=== PATIENT | male | born 1980 | race Caucasian/White ===

== ENCOUNTER 2017-03-18 08:32 | Inpatient (IN) | payer BC ==
[2017-02-21 13:36] VITALS: BMI 40.0
--- NOTE | 2017-02-21 13:56 | PAT Medication Instructions ---
Service Date Feb 21, 2017. Current Home Medication List Ibuprofen (Advil), 200-600 MG PO UD PRN for Pain Medication Instructions For Your Scheduled Surgery - Hold the following medications 7-10 days prior to surgery per surgeon's instructions: Ibuprofen (Advil), 200-600 MG PO UD PRN for Pain If you have any questions please call us at [phone] or [phone] or [phone]
--- NOTE | 2017-02-21 14:37 | DIAGNOSTIC IMAGING REPORT ---
CHEST PREADMISSION(PA/LAT) HISTORY: Preop. COMPARISON: None. FINDINGS: The lungs are clear. Cardiac silhouette is normal in size. No pleural effusions. No pneumothorax. IMPRESSION: No acute process. Electronically signed by: Cong Weathers M.D. 02/21/2017 2:36 PM Dictated Date/Time: 02/21/2017 2:35 PM
[2017-02-21 14:52] LABS: BASO % 0.3 %; BASO ABS # 0.03 K/uL (0-0.2); COMPLETE YES; EOS % 1.8 %; HEMATOCRIT 45.9 % (42-52); IG% 0.2 %; LYMPH % 25.6 %; LYMPH ABS # 2.32 K/uL (1.2-3.4); MEAN CELL VOLUME 90.2 fL (80-100); MEAN CORPUSCULAR HEMOGLOBIN 31.2 pg (25-34); MEAN CORPUSCULAR HGB CONC 34.6 g/dl (32-36); MONO % 8.5 %; NEUT % 63.6 %; PLATELET COUNT 230 K/uL (130-400); RED BLOOD COUNT 5.09 M/uL (4.7-6.1); WHITE BLOOD COUNT 9.05 K/uL (4.8-10.8)
[2017-02-21 15:06] LABS: BUN/CREATININE RATIO 12.2 (10-20); CALCIUM 8.9 mg/dl (8.5-10.1); CREATININE 1.1 mg/dl (0.60-1.40); POTASSIUM 4.1 mmol/L (3.5-5.1)
[2017-02-21 15:15] LABS: URINE APPEARANCE CLEAR (CLEAR); URINE BILIRUBIN NEG (NEG); URINE COLOR YELLOW; URINE NITRITE NEG (NEG); URINE PH 6.5 (4.5-7.5); URINE SPECIFIC GRAVITY 1.025 (1.000-1.030); UROBILINOGEN NEG (NEG); ZZUR CULT IF INDIC CLEAN CATCH NO
[2017-02-21 15:21] LABS: MANUAL MICROSCOPIC REQUIRED? NO; REVIEW REQ? NO
[~2017-03-18] VITALS: Ht 185.4 cm; Wt 136.9 kg
[2017-03-18] VITALS (9 sets, daily range): BP systolic 117–166; BP diastolic 70–92; PULSE 68–97; TEMP 36.5–37.1; O2SAT 94–99; Ht 185.4 cm; Wt 136.9 kg
[~2017-03-18 08:32] MED LIST: IBUP-1050 PO; LACTATED RINGER'S 1000ML 1,000 ML IV SCH
[2017-03-18] MEDS ORDERED: FENTANYL CITRATE INJ 50 MCG/1 ML 2 ML VIAL IV PRN (09:45)
[2017-03-18] MEDS ORDERED: EpHEDrine SULFATE INJ 50 MG/ML AMP IV PRN (09:45)
[2017-03-18] MEDS ORDERED: MoRPHine SULFATE 10 MG/ML CARP/VIAL IV PRN (09:45)
[2017-03-18] MEDS ORDERED: ATROPINE SULFATE 0.1 MG/ML 5ML SYR IV PRN (09:45)
[2017-03-18] MEDS ORDERED: ONDANSETRON INJ 2 MG/ML 2 ML VIAL IV PRN ×2 (09:45→13:45)
[2017-03-18] MEDS ORDERED: FENTANYL CITRATE INJ 50 MCG/1 ML 2 ML VIAL ONE ×4 (10:22→13:35)
[2017-03-18] MEDS ORDERED: MIDAZOLAM HCL 1 MG/ML 2ML VIAL ONE (10:22)
--- NOTE | 2017-03-18 10:31 | History & Physical Bridge Note ---
H&P Re-Evaluation Bridge Note: I have examined the patient, reviewed the History & Physical and in the interval since the performance of the History & Physical I have noted the following changes of clinical significance: No changes noted
--- NOTE | 2017-03-18 10:32 | History and Physical ---
History & Physical Date Mar 18, 2017. Chief Complaint Back and leg pain History of Present Illness The patient is a 37 year old male with complaints of back and leg pain Additional History Hepatic Disease: No Endocrine Disorder: No Kidney Disease: No Hypertension: No Heart Disease: No Bleeding Tendencies: No Infectious Diseases: No Allergies Coded Allergies: No Known Allergies (Unverified , 03/18/17) Home Medications Scheduled PRN Ibuprofen (Advil), 200-600 MG PO UD PRN for Pain Physical Examination Skin: warm/dry, no rash Eyes: normal inspection, EOMI, sclerae normal ENT: normal ENT inspection, pharynx normal Head: normocephalic, atraumatic Neck: supple, no adenopathy, trachea midline Respiratory/Chest: lungs clear, normal breath sounds, no respiratory distress Cardiovascular: regular rate, rhythm, no edema, no murmur Abdomen / GI: normal bowel sounds, non tender Back: normal inspection Extremities: normal inspection, normal range of motion Neurologic/Psych: no motor/sensory deficits, alert, normal reflexes, oriented x 3 Diagnosis Lumbar spinal stenosis Plan of Treatment Lumbar decompression and fusion L4 5 L5-S1
[2017-03-18] MEDS ORDERED: NURSING VERBAL MED ORDER STA (10:44)
[2017-03-18] MEDS ORDERED: CEFAZOLIN IV 3,000 MG/65 ML D5W IV ONE (10:46)
[2017-03-18] MEDS ORDERED: BUPIVACAINE/EPINEPHRINE 0.5% MPF 1:200,000 10 ML VIAL ONE ×2 (10:58)
[2017-03-18] MEDS ORDERED: BACITRACIN 50000 UNIT VIAL ONE (10:58)
[2017-03-18] MEDS ORDERED: HYDROmorphone INJ 2 MG/ML SYR/VIAL ONE ×3 (11:34→13:41)
[2017-03-18] MEDS ORDERED: LIDOCAINE HCL 2% 2 ML VIAL (20MG/ML) ONE (12:48)
[2017-03-18] MEDS ORDERED: ROCURONIUM BROMIDE 10 MG/ML 5 ML VIAL IV ONE (12:48)
[2017-03-18] MEDS ORDERED: DEXAMETHASONE SOD INJ 4 MG/ML VIAL ONE (12:48)
[2017-03-18] MEDS ORDERED: RANITIDINE HCL 25 MG/ML INJ ONE (12:48)
[2017-03-18] MEDS ORDERED: PROPOFOL IV EMULSION 10 MG/ML 20 ML VIAL IV ONE (12:48)
[2017-03-18] MEDS ORDERED: FLOSEAL HEMOSTATIC MATRIX 10ML TOP ONE (13:33)
[2017-03-18] MEDS ORDERED: SODIUM CHLORIDE 0.9% 1000ML 1,000 ML IV SCH (13:38)
[2017-03-18] MEDS ORDERED: METOCLOPRAMIDE HCL INJ 5 MG/ML 2 ML VIAL IV PRN (13:45)
[2017-03-18] MEDS ORDERED: LORAZEPAM 0.5 MG TAB PO PRN (13:45)
[2017-03-18] MEDS ORDERED: PROMETHAZINE HCL INJ 12.5 MG in SODIUM CHLORIDE 0.9% 50ML 50 ML IV PRN (13:45)
[2017-03-18] MEDS ORDERED: LORAZEPAM INJ 0.5 MG in SYRINGE 0 ML IV PRN (13:45)
[2017-03-18] MEDS ORDERED: MAGNESIUM HYDROXIDE SUSP 30 ML UDC PO PRN (13:45)
[2017-03-18] MEDS ORDERED: hydrOXYzine HCL 25 MG TAB PO PRN (13:45)
[2017-03-18] MEDS ORDERED: ACETAMINOPHEN 500 MG TAB PO PRN (13:45)
[2017-03-18] MEDS ORDERED: NALOXONE HCL 0.4 MG/1 ML VIAL/CARP IV PRN ×2 (13:45)
[2017-03-18] MEDS ORDERED: ALUMINUM/MAGNESIUM SUSP 30 ML UDC PO PRN (13:45)
[2017-03-18] MEDS ORDERED: ACETAMINOPHEN IV 100 ML IV PRN (13:45)
[2017-03-18] MEDS ORDERED: FAMOTIDINE 20 MG TAB PO PRN (13:45)
[2017-03-18] MEDS ORDERED: DO NOT ADMINISTER FLU VACCINE PRN ×3 (13:45)
[2017-03-18] MEDS ORDERED: BISACODYL 10 MG SUPP PR PRN (13:45)
[2017-03-18] MEDS ORDERED: SOD PHOSPHATE/SOD BIPHOSPHATE ENEMA 132 ML BTL PR PRN (13:45)
[2017-03-18] MEDS ORDERED: HYDROmorphone HCL 0.5MG/ML 50 ML CASSETTE IV PRN (13:45)
[2017-03-18] MEDS ORDERED: DO NOT ADMINISTER PNEUMOCOCCAL VACCINE PRN ×2 (13:45)
--- NOTE | 2017-03-18 13:46 | [facility] Operative Report ---
Operative Report Operative Date Mar 18, 2017. Pre-Operative Diagnosis Lumbar spinal stenosis Post-Operative Diagnosis Same as preoperative diagnosis Procedure(s) Performed #1 lumbar decompression medial facetectomies foraminotomies L4 5 L5-S1. #2 posterior spinal fusion L4 5 L5-S1. #3 placement posterior segmental instrumentation L4 5 L5-S1. #4 interbody fusion L4 5 L5-S1. #5 placement peek Cage 14 x 26 L4 5 and 14 x 26 at L5-S1. #6 placement locally harvested morcellized autograft in the posterior lateral gutters. #7 placement of ostial amp in the interbody space and posterior lateral gutters. Surgeon Dr. Mariusz Marie Inside Sales Supervisor Surgeon(s) Ankita Valenzuela PA-C Estimated Blood Loss 500mL Findings Severe spinal stenosis with herniated nucleus pulposus Specimens No pathology specimens per surgeon Description of Procedure Patient was met with preoperatively case discussed all questions are dressed. After informed consent patient was taken back to the operative suite and after undergoing intubation placed in a prone position on the Tully table top Howard frame. All bony promises well-padded eyes were inspected to ensure there is no external pressure placed upon them. This point the lumbar spine is prepped and draped in the normal sterile fashion. Sharp dissection with the assistance of Bovie cautery was performed onto an exposing the lamina and transverse processes of L4-L5 and sacral alar bilaterally. From a caudal to cephalad fashion complete laminectomy of L5 and L4 was performed addressing severe lateral recess and foraminal stenosis. Pedicle screws then placed in L4- L5 and S1 levels bilaterally with assistance of fluoroscopy in appropriate size jackson placed. Through a transforaminal approach on the right a complete discectomy of L5-S1 was performed and plate created to subcortical bleeding bone and a 14 x 26 Eva peek cage filled with bone graft tapped in position. Then proceeded L4 5 and again through a transforaminal approach complete discectomy was performed and plate created to subcortical bleeding bone and again a 14 x 26 mm peek cage filled with ostial amp tapped in position. The rods were then compressed locked and final position bilaterally. Transverse processes of L4-L5 and sacral alar burred to subcortical bleeding bone. The remaining ostial amp locally harvested morcellized autograft was placed in the posterior lateral gutters. A 15 round GIGI drain inserted. Incision was then closed with 1 Vicryl in the fascia 2-0 Vicryl subcutaneous C 4 Monocryl for final skin closure Steri-Strip sterile dressing placed patient we can take PACU stable condition. Please note Ankita Beal was present at the entire procedure involved in patient positioning complex portions of the surgery and final skin closure. I attest to the content of the Intraoperative Record and any orders documented therein. Any exceptions are noted below.
[2017-03-18] MEDS ORDERED: HYDROmorphone HCL 0.5MG/ML 50 ML CASSETTE ONE (13:55)
[2017-03-18] MEDS ORDERED: NEOSTIGMINE METHYLSULFATE 1 MG/ML 10ML VIAL ONE (13:58)
[2017-03-18] MEDS ORDERED: GLYCOPYRROLATE INJ 0.2 MG/ML VIAL ONE (13:58)
[2017-03-18] MEDS ORDERED: PHENYLEPHRINE 100MCG/ML 5ML SYR ONE (13:58)
[2017-03-18] MEDS ORDERED: ONDANSETRON INJ 2 MG/ML 2 ML VIAL ONE (13:58)
[2017-03-18] MEDS ORDERED: KETOROLAC TROMETHAMINE 30 MG/ML VIAL ONE (13:58)
--- NOTE | 2017-03-18 13:58 | DIAGNOSTIC IMAGING REPORT ---
LUMBAR SPINE 2 OR 3 VIEW HISTORY: 37 years-old Male L4-S1 DECOMPRESSION/FUSION/INTERBODY COMPARISON: None available TECHNIQUE: 2 spot fluoroscopic images of the lumbar spine were obtained utilizing 27.3 seconds of fluoroscopy time. FINDINGS/IMPRESSION: There has been posterior decompression with discectomy and interbody jackson and screw fixation at L4-S1. Alignment is satisfactory. Please see operative report for further details. The above report was generated using voice recognition software. It may contain grammatical, syntax or spelling errors. Electronically signed by: Domenico Nunez M.D. 03/18/2017 1:57 PM Dictated Date/Time: 03/18/2017 1:56 PM
--- NOTE | 2017-03-18 14:51 | Anesthesiology Progress Note ---
Anesthesia Post Op Note Date & Time Mar 18, 2017 at 14:51 Vital Signs Pain Intensity: 2 Vital Signs Past 12 Hours Date Time Temp Pulse Resp B/P (MAP) Pulse Ox O2 Delivery O2 Flow Rate FiO2 03/18/17 14:30 36.4 70 16 129/77 100 Nasal Cannula 4 03/18/17 14:20 69 14 139/76 99 Nasal Cannula 4 03/18/17 14:10 74 14 131/70 98 Mask 10 03/18/17 14:00 84 15 132/69 100 Mask 10 03/18/17 13:51 36.5 89 12 165/85 100 Mask 10 03/18/17 08:55 36.9 74 20 151/92 97 Room Air Notes Mental Status: alert / awake / arousable, participated in evaluation Pt Amnestic to Procedure: Yes Nausea / Vomiting: adequately controlled Pain: adequately controlled Airway Patency, RR, SpO2: stable & adequate BP & HR: stable & adequate Hydration State: stable & adequate Anesthetic Complications: no major complications apparent
[2017-03-18] MEDS ORDERED: NURSING VERBAL MED ORDER ONE (15:30)
[2017-03-18] MEDS ORDERED: COUGH DROP (SUGAR FREE) LOZ 24 LOZ/1 BOX PO PRN (15:45)
[2017-03-18] MEDS: LACTATED RINGER'S 1000ML 1,000 ML IV SCH ×2 (17:26→20:13)
[2017-03-18] MEDS: DEXAMETHASONE INJ 6 MG in SYRINGE 0 ML IV SCH (20:13)
[2017-03-18] MEDS: CEFAZOLIN IV 3,000 MG in DEXTROSE 5% 50ML 50 ML IV SCH (20:13)
[2017-03-18] MEDS: DOCUSATE SODIUM/SENNA 50/8.6MG TAB PO SCH (20:39)
[2017-03-19 03:18] VITALS: BP 142/69; PULSE 83; TEMP 37; O2SAT 96
[2017-03-19] MEDS: LACTATED RINGER'S 1000ML 1,000 ML IV SCH (03:22)
[2017-03-19] MEDS: CEFAZOLIN IV 3,000 MG in DEXTROSE 5% 50ML 50 ML IV SCH (03:23)
[2017-03-19] MEDS: DEXAMETHASONE INJ 6 MG in SYRINGE 0 ML IV SCH ×2 (03:26→11:34)
[2017-03-19] MEDS ORDERED: NURSING VERBAL MED ORDER ONE (05:30)
[2017-03-19] MEDS ORDERED: HYDROmorphone INJ 1 MG/ML SYR IV PRN (06:00)
[2017-03-19] MEDS ORDERED: HYDROmorphone INJ 0.5 MG/0.5 ML SYR IV PRN (06:00)
[2017-03-19] MEDS ORDERED: DC PCA SCH (06:00)
[2017-03-19 06:14] LABS: COMPLETE YES; IG% 0.4 %; LYMPH % 8.5 %; LYMPH ABS # 1.18 K/uL (1.2-3.4); MEAN CELL VOLUME 88.7 fL (80-100); MEAN CORPUSCULAR HEMOGLOBIN 31.2 pg (25-34); MEAN CORPUSCULAR HGB CONC 35.1 g/dl (32-36); MEAN PLATELET VOLUME 10.2 fL (7.4-10.4); MONO % 3.8 %; NEUT % 87.3 %; PLATELET COUNT 197 K/uL (130-400); RED BLOOD COUNT 4.17 M/uL (4.7-6.1); WHITE BLOOD COUNT 13.86 K/uL (4.8-10.8)
[2017-03-19 06:49] LABS: BUN/CREATININE RATIO 13.5 (10-20); CALCIUM 8.9 mg/dl (8.5-10.1); CREATININE 0.8 mg/dl (0.60-1.40); POTASSIUM 4.1 mmol/L (3.5-5.1)
[2017-03-19 06:58] VITALS: BP 128/78; PULSE 76; TEMP 36.8; O2SAT 94
[2017-03-19] MEDS: OXYCODONE HCL IR 5 MG TAB (IMMEDIATE RELEASE) PO PRN ×4 (07:10→21:29)
--- NOTE | 2017-03-19 08:57 | Progress Note ---
Progress Note Date of Service Mar 19, 2017. Progress Note Patient is postop day #1. Leg symptoms are markedly improved. Back pain is controlled. Vital signs are stable. GIGI drain decreasing appropriate. Assessment status post lumbar depression fusion replant this time we'll initiate physical therapy this a.m. advance his bowel regiment anticipate possible home tomorrow.
[2017-03-19] MEDS ORDERED: KETOROLAC TROMETHAMINE 30 MG/ML VIAL IV PRN (09:00)
[2017-03-19 11:09] VITALS: BP 119/57; PULSE 63; TEMP 36.8; O2SAT 96
[2017-03-19 15:10] VITALS: BP 120/64; PULSE 66; TEMP 37.2; O2SAT 94
[2017-03-19 15:30] VITALS: O2SAT 94
[2017-03-19] MEDS: DOCUSATE SODIUM/SENNA 50/8.6MG TAB PO SCH (21:29)
[2017-03-19 22:43] VITALS: BP 152/67; PULSE 70; TEMP 37.1; O2SAT 96
[2017-03-20] MEDS: OXYCODONE HCL IR 5 MG TAB (IMMEDIATE RELEASE) PO PRN ×3 (03:59→13:05)
[2017-03-20 05:57] VITALS: BP 119/81; PULSE 60; TEMP 36.7; O2SAT 97
[2017-03-20] MEDS ORDERED: POLYETHYLENE (MIRALAX) 17 GM PACK PO SCH (06:00)
[2017-03-20 07:29] VITALS: BP 160/82; PULSE 65; TEMP 36.9; O2SAT 95
[2017-03-20 08:19] VITALS: BP 138/74
[2017-03-20 08:22] VITALS: BP 138/74; PULSE 75
[2017-03-20] MEDS ORDERED: RXC5 PO (10:25)
--- NOTE | 2017-03-20 10:25 | Discharge Instructions ---
Discharge Instructions Date of Service Mar 20, 2017. Admission Reason for Admission: Lumbar Spinal Stenosis Discharge Discharge Diagnosis / Problem: lumbar stenosis Discharge Goals Goal(s): Improve function Activity Recommendations Activity Limitations: per Instructions/Follow-up section . Instructions / Follow-Up Instructions / Follow-Up u ACTIVITY RECOMMENDATIONS: SELF CARE INSTRUCTIONS AFTER THORACIC/LUMBAR FUSIONS 1. You may walk to your tolerance. It is good exercise for your legs and back. Expect some back and intermittent leg aches and pains. 2. You may perform "counter-top" level activities (make a sandwich, luca with a project, etc.). 3. No bending or lifting of more than 10 pounds or back twisting of any nature (roll like a log when turning in bed). 4. You may ride in a car for 20-30 minutes at a time. No driving until after your first visit with your doctor. 5. Frequent changes of position and restricting sitting to 30 minutes at a time will help limit the amount of back spasms and stiffness you may experience. 6. You may discontinue the use of ambulatory aids (cane, crutches, etc.) once your strength and confidence allow. 7. You may lighting fixture installer the shower and let water strike your incision when you arrive home at least once daily. Do not take a tub bath, sit in a hot tub or go into a swimming pool until after your first recheck in the office. SPECIAL CARE INSTRUCTIONS: VERY IMPORTANT TO READ AND REVIEW A. Your surgical incision has been closed with a cosmetic suture under the skin that will dissolve in about 6 weeks. In 14 days, you can use a pair of clean scissors and cut the suture that is left outside of the skin at the ends of your incision. 1. The small skin tapes can be removed 7 days after surgery if they have not fallen off by that point. 2. You may keep the wound open to air as much as possible to promote healing after post-op day number 5 unless told otherwise by your doctor. 3. If you think the wound looks like it is becoming infected (redness or worsening drainage) and/or you are experiencing fever, chill or worsening back pain and muscle spasms, contact the office so that we may evaluate you as soon as possible. B. Complications are uncommon, but please contact us if you have any signs or symptoms of: 1. wound infection (fever higher than 102.5 degrees F, redness, separation of wound, drainage, or increasing pain from the incision) 2. blood clots in legs (pain, swelling, redness and warmth in legs) 3. urinary tract infection (fever higher than 102.5 degrees F, burning upon urination or increased frequency of urination) 4. nerve problems (inability to walk on your toes or heels, numbness, loss of bowel or bladder control) 5. any other symptoms that concern you C. Please call the office at if you have any concerns or questions about your operation or recovery. D. No smoking! Smoking drastically decreases the chance of a solid fusion. E. Do not take any anti-inflammatory medications (Indocin, Advil, Motrin, Aspirin, Naprosyn, etc.) as these may inhibit the chance of a solid fusion. Tylenol is okay to take for pain. MANAGING PAIN AFTER SPINAL SURGERY 1. Narcotic medication is intended for short-term use and will be provided for surgical pain. Surgical pain usually lasts for a period of 4-6 weeks. Narcotic medication includes Percocet, Vicodin, Darvocet, Tylenol #3 or Lortab. 2. Longer-term pain is more appropriately treated with non-narcotic medication such as Tylenol ES. 3. Muscle spasm is not appropriately treated with narcotics. Muscle relaxers such as Soma, Flexeril or Skelaxin can be used along with Tylenol ES. 4. Remember that we all live with some "aches and pains". This is not unusual or uncommon after an injury or as we get older. a. Back pain is expected and may include muscle spasms for 4 to 6 weeks after surgery. The pain should gradually improve. If the pain worsens for no apparent reason, please contact the office. b. Intermittent leg pain may also be experienced and should not be concerned about unless it worsens for no apparent reason. If so, please contact the office. 5. We will provide appropriate medication within the normal guidelines of their prescribed use. We will also be very cautious and aware of potential abuse and extended duration of patients' medication needs. a. Pain medications are for your comfort and to assist with sleep and rest so that the tissue can heal. They are not provided in order to return to normal activity and should not be used through the day. To do so or worsening pain at night can result from ongoing tissue damage and development of tolerance to the prescribed medicine. 6. Please allow 2-3 days to process refills. Prescriptions will not be mailed but must be picked up at the office. FOLLOW UP VISIT: Keep your scheduled follow-up appointment. Any questions, please call the office at . Current Hospital Diet Patient's current hospital diet: Regular Diet Discharge Diet Recommended Diet: Regular Diet Procedures Procedures Performed: #1 lumbar decompression medial facetectomies foraminotomies L4 5 L5-S1. #2 posterior spinal fusion L4 5 L5-S1. #3 placement posterior segmental instrumentation L4 5 L5-S1. #4 interbody fusion L4 5 L5-S1. #5 placement peek Cage 14 x 26 L4 5 and 14 x 26 at L5-S1. #6 placement locally harvested morcellized autograft in the posterior lateral gutters. #7 placement of ostial amp in the interbody space and posterior lateral gutters. Pending Studies Studies pending at discharge: no Medical Emergencies . Who to Call and When: Medical Emergencies: If at any time you feel your situation is an emergency, please call 911 immediately. . Non-Emergent Contact Non-Emergency issues call your: Primary Care Provider . "Provider Documentation" section prepared by Mariusz Marie. . VTE Core Measure Inpt VTE Proph given/why not?: Anai Pacheco, SCD's
[2017-03-20 10:58] VITALS: BP 138/74; PULSE 75; TEMP 36.9; O2SAT 95
[2017-03-20] MEDS ORDERED: NURSING VERBAL MED ORDER ONE (11:00)
--- NOTE | 2017-03-20 15:19 | Discharge Summary ---
Orthopedic Discharge Summary Admission Date/Reason Mar 18, 2017 at 09:30 Lumbar Spinal Stenosis. Discharge Date/Disposition Mar 20, 2017 Home Diagnosis Principal Diagnosis: Lumbar spinal stenosis Admission Physical Exam As per Admitting History & Physical. Hospital Course Patient underwent lumbar decompression fusion tolerated this well as taken to the orthopedic floor postoperatively. Postoperative leash progressed nicely GIGI drain decreasing appropriately leg pain improved. Subsequently is discharged home. Discharge orders and instructions found on the chart for further review. Discharge Instructions Please refer to the electronic Patient Visit Report (Discharge Instructions) for additional information.
[2017-03-20] MEDS ORDERED: GABAPENTIN 300 MG CAP PO SCH (21:00)
== END 2017-03-20 13:20 | disposition home or self-care (01) | DRG 460 ==
LOC: C.ACU 08:32 → C.3E 09:30 → ENRESERV 03-18 14:28
PROVIDERS: ADMIT Orthopaedic Surgery Orthopaedic Surgery of the Spine; ATTEND Orthopaedic Surgery Orthopaedic Surgery of the Spine
PROC: 0ST20ZZ Resection of Lumbar Vertebral Disc, Open Approach (ICD-10-PCS; principal; 2017-03-18 10:15)
PROC: 0ST40ZZ Resection of Lumbosacral Disc, Open Approach (ICD-10-PCS; principal; 2017-03-18 10:15)
PROC: 0SG30AJ Fusion of Lumbosacral Joint with Interbody Fusion Device, Posterior Approach, Anterior Column, Open Approach (ICD-10-PCS; principal; 2017-03-18 10:15)
PROC: 0SG0071 Fusion of Lumbar Vertebral Joint with Autologous Tissue Substitute, Posterior Approach, Posterior Column, Open Approach (ICD-10-PCS; principal; 2017-03-18 10:15)
PROC: 0SG3071 Fusion of Lumbosacral Joint with Autologous Tissue Substitute, Posterior Approach, Posterior Column, Open Approach (ICD-10-PCS; principal; 2017-03-18 10:15)
PROC: 0SG00AJ Fusion of Lumbar Vertebral Joint with Interbody Fusion Device, Posterior Approach, Anterior Column, Open Approach (ICD-10-PCS; principal; 2017-03-18 10:15)
DX: M48.06 Spinal stenosis, lumbar region (principal); M51.26 Other intervertebral disc displacement, lumbar region; E66.01 Morbid (severe) obesity due to excess calories; Z68.31 Body mass index [BMI] 31.0-31.9, adult